=== PATIENT | female | born 1995 | race African-American/Black ===

== ENCOUNTER → 2019-12-29 | Emergency (ER) | payer BC, OTHER ==
[~2019-12-29] VITALS: Ht 165.1 cm; Wt 74.8 kg
[~2019-12-29] MED LIST: IBUPROFEN 800 MG TAB PO ONE; ONDANSETRON ODT 4 MG TAB PO ONE
[2019-12-29 20:01] VITALS: BP 111/70
== END | disposition home or self-care (01) ==
LOC: EDUNIT# 17:30 → ER 17:41 → EDBD 17:41
DX: S30.1XXA Contusion of abdominal wall, initial encounter (principal); S09.90XA Unspecified injury of head, initial encounter; Y04.2XXA Assault by strike against or bumped into by another person, initial encounter; Y93.89 Activity, other specified; Y92.89 Other specified places as the place of occurrence of the external cause; Y99.8 Other external cause status
CPT/HCPCS: 70450; 72125; 74176; 76830; 76856; 99285; Q0162

== ENCOUNTER 2020-03-05 20:50 | Emergency (ER) | payer SELFPAY ==
[~2020-03-05] VITALS: Ht 30.5 cm; Wt 0.5 kg
[2020-03-05] MEDS ORDERED: ACTIVATED CHARCOAL 50 GM/240 ML SOL PO ONE (21:15)
[2020-03-05 22:11] LABS: Basophils # (auto) 0.1 10 ^3/uL (0-0.2); Basophils % (auto) 0.8 % (0.0-2.0); Eosinophils # (auto) 0.1 10 ^3/uL (0-0.8); Eosinophils % (auto) 1.9 % (0.0-7.0); Hematocrit 45.7 % (36.0-46.0); Hemoglobin 14.6 g/dL (12.2-16.2); Lymphocytes # (auto) 2.4 10 ^3/uL (0.4-5.4); Lymphocytes % (auto) 33.3 % (10.0-50.0); Mean Corpuscular Hemoglobin 28.7 pg (28.0-32.0); Mean Corpuscular Hgb Conc. 31.9 g/dL (32.0-36.0); Mean Corpuscular Volume 89.9 fL (80.0-100.0); Monocytes # (auto) 0.5 10 ^3/uL (0-1.3); Monocytes % (auto) 7.5 % (0.0-12.0); Neutrophils # (auto) 4.1 10 ^3/uL (1.6-8.6); Neutrophils % (auto) 56.5 % (37.0-80.0); Platelet Count (auto) 315 10^3/uL (140-450); Red Blood Cells 5.09 10^6/uL (4.0-5.20); Red Cell Distribution Width 14.2 % (11.8-14.3); White Blood Cell 7.2 10^3/uL (4.4-10.8)
[2020-03-05 22:28] LABS: Albumin 4.2 g/dL (3.4-5.0); BUN/Creatinine Ratio 15.1; Calcium 9.3 mg/dL (8.5-10.1); Potassium 3.6 mmol/L (3.5-5.1)
[2020-03-05 22:31] LABS: Bilirubin, Total 0.6 mg/dL (0.2-1.0); Total Protein 9.4 g/dL (6.4-8.2)
[2020-03-05 22:34] LABS: Salicylate < 1.7 mg/dL (2.8-20.0)
[2020-03-05 22:39] LABS: Acetaminophen < 2.0 ug/mL (10-30)
[2020-03-06 02:03] LABS: Urine Bacteria FEW /hpf (None Seen); Urine Blood 3+ /uL (Negative); Urine Specific Gravity 1.004 (1.001-1.035); Urine WBC <1 /hpf (0 - 5)
[2020-03-06 02:24] LABS: Alcohol, Urine < 3.0 mg/dL (0-10); Amphetamine Screen, Urine POSITIVE (NEGATIVE); Barbiturate Scree,Urine NEGATIVE (NEGATIVE); Benzodiazephine Screen, Urine NEGATIVE (NEGATIVE); Cannabinoid Screen, Urine NEGATIVE (NEGATIVE); Cocaine Screen, Urine NEGATIVE (NEGATIVE); Opiate Scree,Urine NEGATIVE (NEGATIVE); Phencyclidine Screen, Urine NEGATIVE (NEGATIVE)
[2020-03-06] MEDS ORDERED: LORazepam 0.5 MG TAB ONE (10:30)
[2020-03-06] MEDS ORDERED: LORazepam 0.5 MG TAB PO PRN (10:45)
[2020-03-06] MEDS: FOLIC ACID 1 MG, MULTIPLE VITAMIN 10 ML, MAGNESIUM SULF SDV 50% 8 MEQ, THIAMINE INJ 100... INJ SCH ×5 (12:00)
[2020-03-06] MEDS ORDERED: HALOPERIDOL LACTATE 5 MG/ML INJ VIAL ONE (20:40)
[2020-03-06] MEDS ORDERED: diphenhdrAMINE HCL 50 MG/1 ML VL ONE (20:41)
[2020-03-06] MEDS ORDERED: LORazepam 2MG/ML-1ML VIAL ONE (20:42)
[2020-03-07] MEDS ORDERED: HALOPERIDOL LACTATE 5 MG/ML INJ VIAL IM ONE (07:15)
[2020-03-07] MEDS ORDERED: LORazepam 2MG/ML-1ML VIAL IM ONE (07:15)
[2020-03-07] MEDS ORDERED: diphenhdrAMINE HCL 50 MG/1 ML VL IM ONE (07:15)
[2020-03-07] MEDS: FOLIC ACID 1 MG, MULTIPLE VITAMIN 10 ML, MAGNESIUM SULF SDV 50% 8 MEQ, THIAMINE INJ 100... INJ SCH ×5 (12:00)
[2020-03-09 21:32] VITALS: BP 117/82
== END 2020-03-09 21:47 | disposition home or self-care (01) ==
LOC: ER 20:56
DX: T50.5X2A Poisoning by appetite depressants, intentional self-harm, initial encounter (principal); F17.210 Nicotine dependence, cigarettes, uncomplicated; Y92.89 Other specified places as the place of occurrence of the external cause
CPT/HCPCS: 36415; 71045; 80053; 80307; 80329; 81001; 82550; 85025; 93005